=== PATIENT | female | born 1985 | race African-American/Black ===

== ENCOUNTER 2016-12-06 23:45 | Emergency (ER) | payer OTHER ==
--- NOTE | ~2016-12-06 | CT4 ---
[facility] A Service of [facility] & [facility] RADIOLOGY TEXT RESULTS PATIENT: KY LIMA LOCATION: [facility] : 87 UNIT #: [id number] AGE: [address]: Reginaldo Gonzalez MD SEX: F ORDER DR: [id number] [facility] [address] [place], [place] [address] [id number] E MR#: [id number] Acc #: [id number] NAME: KY LIMA : 1985 SEX: F STUDY DATE/TIME: 12/06/2016 2241 UNIT: [facility] ROOM: STUDY DESCRIPTION: CT Abd and Pelv Wo Cont Attending Physician: Reginaldo Gonzalez M.D. Ordering Physician: Reginaldo Gonzalez M.D. Primary Care Physician: [facility], [facility]. MEDICAL IMAGING REPORT This report is preliminary unless electronic signature is present EXAM CT abdomen and pelvis 12/06/2016 at 22:41 INDICATIONS Right flank and groin pain for the last 3 days. Pain currently rates 10:10. TECHNIQUE Axial images were obtained through the abdomen and pelvis without contrast. Multiplanar reformats were obtained. This CT exam was performed with one or more of the following radiation dose reduction techniques: automatic exposure control, adjustment of mA and/or kV according to patient size, and iterative reconstruction. COMPARISON STUDIES Comparison is made with 01/24/2014. FINDINGS CT ABDOMEN: Lung bases are clear. Gallbladder unremarkable. No renal or ureteral stones are seen. There is no hydronephrosis. The unenhanced solid organs remain normal. No free fluid. The unopacified GI tract is normal. CT PELVIS: The appendix is normal. The remainder of the unopacified GI tract is normal as well. There is a 3.8 cm left adnexal cyst which is presumably ovarian. Solid pelvic organs are otherwise normal. Patient is presumably status post tubal ligation. Correlate with history. Minimal amount of free fluid is presumably is likely physiologic. There are multiple phleboliths in the pelvis. No definite lower ureteral stones. IMPRESSION 1. No renal or ureteral stones. No hydronephrosis. [facility] A Service of [facility] & [facility] RADIOLOGY TEXT RESULTS PATIENT: KY LIMA LOCATION: [facility] : [birth year] UNIT #: [id number] AGE: [address]: Reginaldo Gonzalez MD SEX: F ORDER DR: 2. Normal unopacified GI tract including the appendix. 3. 3.8 cm left adnexal cyst, presumably ovarian. Dictated by... Esteban Garcia Jr., M.D. THIS IS AN ELECTRONICALLY VERIFIED REPORT Esteban Garcia Jr., M.D. at 12/07/2016 12:35 PM RANDY/bob TD: 12/07/2016 11:52 JOB #: [id number] MEDICAL IMAGING REPORT COPY
[2016-12-06 23:17] LABS: DIFF IND YES
[2016-12-06 23:35] LABS: PLATELET ESTIMATE NORMAL (NORMAL)
[2016-12-06 23:36] LABS: HYPOCHROMIA MOD; OVALOCYTES PRESENT; POIKILOCYTOSIS SL; SMUDGE CELLS 3 /100
[2016-12-06 23:55] LABS: URINE SOURCE CLEAN CATCH
[2016-12-06 23:58] LABS: URINE APPEARANCE CLEAR; URINE BILIRUBIN NEG (NEG); URINE BLOOD NEG (NEG); URINE COLOR YELLOW; URINE GLUCOSE NEG (NEG); URINE KETONE NEG (NEG); URINE LEUKOCYTE ESTERASE NEG (NEG); URINE NITRATE NEG (NEG); URINE PH 7.5 (5-8); URINE PROTEIN NEG (NEG); URINE SPECIFIC GRAVITY 1.015 (1.003-1.035)
[2016-12-07 00:02] LABS: CULTURE INDICATED? NO
== END 2016-12-07 00:30 | disposition home or self-care (01) ==
LOC: CED 23:45
PROVIDERS: Emergency Medicine
DX: R10.9 Unspecified abdominal pain (principal)
CPT/HCPCS: 36415; 74176; 80048; 80076; 81003; 84703; 85025; 96374; 99284; J1885

== ENCOUNTER → 2017-03-05 | Outpatient (CLI) | payer OTHER ==
--- NOTE | ~2017-03-05 | US98 ---
[facility] A Service of [facility] RADIOLOGY TEXT RESULTS PATIENT: KY LIMA LOCATION: [facility] : 87 UNIT #: [id number] AGE: [address]: DMITRIY NIEVES SEX: F ORDER DR: [id number] [id number] [facility]. [place], [place] [address] [id number] O MR#: [id number] Acc #: [id number] NAME: KY LIMA : 1985 SEX: F STUDY DATE/TIME: 03/05/2017 14:56 UNIT: [facility] ROOM: STUDY DESCRIPTION: US Pelvic Non-OB Complete Ordering Physician: Dmitriy Nieves Aprn MEDICAL IMAGING REPORT This report is preliminary unless electronic signature is present EXAM Transabdominal and transvaginal pelvic ultrasound 03/05/2017 HISTORY Right lower quadrant abdominal and pelvic pain off For 1 month. TECHNIQUE Transabdominal and transvaginal pelvic ultrasound was performed. Endovaginal ultrasound was performed for attempted better visualization of the adnexal structures. FINDINGS The bladder is normal in appearance. Uterus measures 7.4 cm craniocaudal x 3.8 cm AP x 5.4 cm transverse. The endometrial stripe measures 1.6 cm. The right ovary measured 3.6 cm x 1.6 cm x 3.2 cm while the left ovary measures 4.2 cm x 2.2 cm x 3.6 cm. Small follicles are seen on both ovaries. Color flow Doppler images show normal blood flow to both ovaries. There is no adnexal mass. There is no free fluid in the pelvis. IMPRESSION Negative transabdominal and transvaginal pelvic ultrasound. Dictated by... Edis Greene M.D. THIS IS AN ELECTRONICALLY VERIFIED REPORT Edis Greene M.D. at 03/08/2017 12:47 PM KRT/pcl TD: 03/06/2017 00:37 [facility] A Service of [facility] RADIOLOGY TEXT RESULTS PATIENT: KY LIMA LOCATION: [facility] #: [id number] : 87 UNIT #: [id number] AGE: [address]: DMITRIY NIEVES SEX: F ORDER DR: JOB #: [id number] MEDICAL IMAGING REPORT Page 1 of 1 COPY
== END | disposition home or self-care (01) ==
LOC: CGUS 13:50
DX: N83.202 Unspecified ovarian cyst, left side (principal)
CPT/HCPCS: 76830; 76856

== ENCOUNTER 2017-04-06 17:44 | Emergency (ER) | payer OTHER ==
--- NOTE | ~2017-04-06 | CR63 ---
[facility] A Service of [facility] & [facility] RADIOLOGY TEXT RESULTS PATIENT: KY LIMA LOCATION: [facility] : 87 UNIT #: [id number] AGE: [address]: Charly Yi SEX: F ORDER DR: [id number] [facility] [address] [place], [place] [address] [id number] E MR#: [id number] Acc #: [id number] NAME: KY LIMA : 1985 SEX: F STUDY DATE/TIME: 04/06/2017 19:29 UNIT: [facility] ROOM: STUDY DESCRIPTION: CR Chest 2 View Attending Physician: Charly Yi P.A.-C. Ordering Physician: Charly Yi P.A.-C. Primary Care Physician: [facility] MEDICAL IMAGING REPORT This report is preliminary unless electronic signature is present EXAM Chest x-ray 2 views HISTORY Back pain. Upper back pain and chest pain for 3.5 weeks. No known injury. FINDINGS Frontal and lateral views of the chest are reviewed. There is no previous. There is no pleural effusion. Heart size is normal. No acute-appearing parenchymal infiltrate. No acute congestive failure. No pneumothorax. IMPRESSION No active disease is seen in the chest. Dictated by... Jessica Meier M.D. THIS IS AN ELECTRONICALLY VERIFIED REPORT Jessica Meier M.D. at 04/07/2017 7:58 AM MORENA/regino TD: 04/07/2017 05:48 JOB #: [id number] MEDICAL IMAGING REPORT Page 1 of 1 COPY
== END 2017-04-06 21:00 | disposition home or self-care (01) ==
LOC: CFTX 17:44 → CED 17:44 → CFTX 19:24
DX: M54.6 Pain in thoracic spine (principal)
CPT/HCPCS: 71020; 99283